=== PATIENT | female | born 1975 | race Caucasian/White ===

== ENCOUNTER 2025-01-07 06:18 | Day surgery (SDC) | payer BC ==
[2025-01-07] MEDS ORDERED: PHENAZOPYRIDINE HCL 100 MG TABLET (FP) ONE (06:21)
[2025-01-07] MEDS: PHENAZOPYRIDINE HCL 100 MG TABLET (FP) PO ONE (06:33)
[2025-01-07] MEDS ORDERED: ACETAMINOPHEN 1000 MG/100 ML BAG IVPB ONE (07:00)
[2025-01-07] MEDS ORDERED: SUCCINYLCHOLINE CHLORIDE 200 MG/10 ML SYRINGE ONE (07:16)
[2025-01-07] MEDS ORDERED: LIDOCAINE HCL/PF 2% SDV 5ML VIAL ONE (07:16)
[2025-01-07] MEDS ORDERED: MIDAZOLAM HCL 2 MG/2 ML SINGLE DOSE VIAL ONE (07:16)
[2025-01-07] MEDS ORDERED: ROCURONIUM BROMIDE 50 MG/5 ML SYRINGE ONE (07:16)
[2025-01-07] MEDS ORDERED: PROPOFOL 20 ML ONE (07:16)
[2025-01-07] MEDS: ceFAZolin 2 GRAM PREMIX BAG IVPB ONE ×2 (07:58)
[2025-01-07] MEDS ORDERED: DEXAMETHASONE SOD PHOSPHATE 4 MG/1 ML VIAL ONE (08:02)
[2025-01-07] MEDS ORDERED: KETOROLAC TROMETHAMINE 30 MG/1 ML VIAL ONE (09:19)
[2025-01-07] MEDS ORDERED: ONDANSETRON 4 MG/2 ML VIAL ONE (09:19)
[2025-01-07] MEDS ORDERED: SUGAMMADEX SODIUM 200 MG/2 ML VIAL ONE (09:20)
[2025-01-07] MEDS ORDERED: ONDANSETRON 4 MG/2 ML VIAL IVPUSH PRN ×2 (09:46→09:51)
[2025-01-07] MEDS ORDERED: PROMETHAZINE HCL 25 MG/1 ML VIAL IVPB PRN (09:46)
[2025-01-07] MEDS ORDERED: BISACODYL 5 MG TABLET.DR (FP) PO PRN (09:51)
[2025-01-07] MEDS ORDERED: SIMETHICONE 80 MG TAB.CHEW (FP) PO PRN (09:51)
[2025-01-07] MEDS ORDERED: LACTATED RINGERS SOLUTION 1,000 ML IV SCH (10:00)
[2025-01-07] MEDS: ACETAMINOPHEN 1000 MG/100 ML BAG IVPB ONE (10:00)
[2025-01-07] MEDS: LACTATED RINGERS SOLUTION 1,000 ML IV SCH (10:01)
[2025-01-07] MEDS: IBUPROFEN 800 MG/8 ML IJ IVPB PRN (16:28)
[2025-01-07] MEDS: CEFAZOLIN 1 GM in DEXTROSE 5%-WATER - 50 ML IVPB SCH (17:59)
[2025-01-07] MEDS: ACETAMINOPHEN 1000 MG/100 ML BAG IVPB SCH (18:00)
[2025-01-07 18:38] LABS: MCHC 31.4 g/dl (32.2-35.5); MEAN CELL VOLUME 99.2 fl (79.4-94.8); MEAN PLT VOLUME 10.0 fl (9.4-12.3); RDW 12.9 % (12.2-17.1)
[2025-01-07 18:51] LABS: GLUCOSE,RANDOM 175.0 mg/dL (74-106)
[2025-01-07 18:53] LABS: CO2 26.0 mmol/L (21-32)
[2025-01-07 18:57] LABS: CREATININE 0.65 mg/dL (0.55-1.3)
[2025-01-07 22:09] VITALS: RESP 18
[2025-01-07] MEDS: DOCUSATE SODIUM 100 MG CAPSULE (FP) PO PRN (23:47)
[2025-01-07] MEDS: ZOLPIDEM TARTRATE 5 MG TABLET PO ONE (23:51)
[2025-01-08 07:37] LABS: MCHC 32.3 g/dl (32.2-35.5); MEAN CELL VOLUME 98.2 fl (79.4-94.8); MEAN PLT VOLUME 10.2 fl (9.4-12.3); RDW 12.8 % (12.2-17.1)
[2025-01-08 07:51] LABS: GLUCOSE,RANDOM 102.0 mg/dL (74-106)
[2025-01-08 07:53] LABS: CO2 25.0 mmol/L (21-32)
[2025-01-08 07:57] LABS: CREATININE 0.65 mg/dL (0.55-1.3)
[2025-01-08] MEDS: ENOXAPARIN NA (PORCINE) 40 MG/0.4 ML DISP.SYRIN SQ SCH (09:04)
[2025-01-08] MEDS ORDERED: ACETAMINOPHEN 500 MG TABLET (FP) PO PRN (09:32)
[2025-01-08] MEDS ORDERED: IBUPROFEN 600 MG TABLET (FP) PO PRN (09:32)
[2025-01-08] MEDS: LORATADINE 10 MG TABLET PO SCH (10:04)
[2025-01-08] MEDS: LISINOPRIL 5 MG TABLET PO SCH (10:48)
[2025-01-08 11:44] VITALS: BP 119/64; PULSE 88; TEMP 98.4
[2025-01-08] MEDS ORDERED: MONTELUKAST NA 10 MG TABLET PO SCH (22:00)
== END 2025-01-08 11:15 | disposition home or self-care (01) ==
LOC: JASUSAT 06:18 → J3W 12:19 → JASUSAT 01-08 11:15
PROVIDERS: ATTEND Obstetrics & Gynecology
PROC: 8E0W4CZ Robotic Assisted Procedure of Trunk Region, Percutaneous Endoscopic Approach (ICD-10-PCS; 2025-01-07)
PROC: 0UB04ZZ Excision of Right Ovary, Percutaneous Endoscopic Approach (ICD-10-PCS; 2025-01-07)
PROC: 0UT9FZZ Resection of Uterus, Via Natural or Artificial Opening With Percutaneous Endoscopic Assistance (ICD-10-PCS; principal; 2025-01-07 07:45)
PROC: 0UT7FZZ Resection of Bilateral Fallopian Tubes, Via Natural or Artificial Opening With Percutaneous Endoscopic Assistance (ICD-10-PCS; 2025-01-07 07:45)
DX: N92.0 Excessive and frequent menstruation with regular cycle (principal); D25.9 Leiomyoma of uterus, unspecified; N72 Inflammatory disease of cervix uteri; N88.8 Other specified noninflammatory disorders of cervix uteri; N83.201 Unspecified ovarian cyst, right side
CPT/HCPCS: 58552; 58662; S2900; 36415; 80048; 85027; 86850; 86900; 86901; 88302-TC; 88307-TC; 94010; 94760